=== PATIENT | female | born 1940 | race Caucasian/White ===

== ENCOUNTER → 2017-10-06 | Outpatient (CLI) | payer MEDICARE ==
[~2017-10-06] MED LIST: ACETAMINOPHEN650 M1 PO; ACTOPLUS MET 11 EAC1 PO; ALPRAZOLAM0.25 M1 PO; ATENOLOL50 MG PO; BENTYL10 MG PO; CALCIUM500 M3 PO; CLOPIDOGREL75 MG PO; DICYCLOMINE HCL20 MG PO; IBANDRONATE SO150 MG PO; METFORMIN HCL500 MG PO; PANTOPRAZOLE SO40 MG PO; TEMAZEPAM15 MG PO; VERAPAMIL HCL120 MG PO; Z MELATONIN PO; Z.0.AMBIEN10 MG PO; Z.0.ASPIRIN81 MG PO; Z.0.BYSTOLIC5 MG PO; Z.0.EFFIENT10 MG PO; Z.0.LOVASTATIN40 MG PO; Z.0.VERAPAMIL HCL40 PO; Z.1.DIOVAN HCT 3201 PO; [UNRECOGNIZED DRUG - OTHER]
--- NOTE | 2017-10-06 12:21 | Diagnostic Imaging Report ---
EXAM: Thyroid Ultrasound INDICATION: \S\THYROID NODULE COMPARISON: Thyroid ultrasound dated 09/16/2016 TECHNIQUE: Transverse and sagittal images were obtained of the thyroid gland. FINDINGS: Thyroid gland: Size: Right lobe 4.7 x 1.8 x 2.4 cm, Normal in size Left lobe 4.4 x 1.6 x 1.9 cm, Normal in size Isthmus 0.2 cm, Normal in size Appearance: Heterogeneous echotexture without increased vascularity Masses/Nodules: 2 x 1.4 x 1.8 cm right midpole cystic/solid nodule with punctate areas of increased echogenicity, representing inspissated colloid versus less likely microcalcifications. This nodule previously measured 2.5 x 1.9 x 2.3 cm 1 x 0.8 x 0.9 cm right superior pole predominantly cystic nodule, previously 0.9 x 0.6 x 0.9 cm. 0.5 x 0.2 x 0.4 cm left superior pole cystic nodule. Previously noted 0.7 cm left midpole cystic/solid nodule was not visualized. Parathyroid: No focal parathyroid masses. IMPRESSION: Although there is interval decrease in size of right midpole cystic/solid nodule, however this nodule still meets the criteria for fine-needle aspiration, if not already obtained. Additional thyroid nodules as described above. Signed by: Dr. Roni Storm MD on 10/06/2017 12:18 PM
== END ==
LOC: US 09:32
PROVIDERS: ATTEND Family Medicine
DX: E04.1 Nontoxic single thyroid nodule (principal)
CPT/HCPCS: 76536

== ENCOUNTER → 2018-01-22 | Day surgery (SDC) | payer MEDICARE ==
[2018-01-16 08:42] LABS: BASOPHILS # (AUTO) 0.1 (0.0-0.1); BASOPHILS % 1.3 % (0.0-1.0); EOSINOPHILS # (AUTO) 0.1 (0.0-0.4); EOSINOPHILS % 1.3 % (0.0-6.0); HEMATOCRIT 34.8 % (34.2-44.1); HEMOGLOBIN 12.3 g/dL (12.0-16.0); LYMPHOCYTES # (AUTO) 1.5 (1.0-3.2); LYMPHOCYTES % 26.8 % (18.0-39.1); MEAN CORPUSCULAR HEMOGLOBIN 32.8 pg (28-32); MEAN CORPUSCULAR HGB CONC 35.3 g/dL (31-35); MEAN CORPUSCULAR VOLUME 92.8 fL (81-99); MONOCYTES # (AUTO) 0.4 (0.2-0.8); MONOCYTES % 7.9 % (4.4-11.3); NEUTROPHILS # (AUTO) 3.5 (2.1-6.9); NEUTROPHILS % 62.5 % (38.7-80.0); PLATELET COUNT 196 x10e3/uL (140-360); RED BLOOD COUNT 3.75 x10e6/uL (3.6-5.1)
[~2018-01-22] MED LIST changes: +FENTANYL CITRATE/PF 100MCG/2 ML INJ ONE; +HYOSCYAMINE SULFATE 0.5 MG/ML AMP ONE; +MIDAZOLAM HCL 2 MG/2 ML VIAL ONE; +PROPOFOL IV EMULSION 10 MG/ML 50 ML VIAL ONE
--- OUTSIDE RECORDS SUMMARY | 2018-01-22 08:24 | XMS REPORT ---
Author Author [facility] Address Unknown Phone Unavailable Care Team Providers Care Healthcare Administrator Name Role Phone ALYSIA SALAS Unavailable Unavailable Problems This patient has no known problems. Allergies, Adverse Reactions, Alerts This patient has no known allergies or adverse reactions. Medications This patient has no known medications. Results Test Description Test Time Test Comments Text Results Atomic Results Result Comments US THYROID [place] [address] Patient Name: LUÍS HIDALGO MR #: [id number] : 1940 Age/Sex: 77/F Req # : [id number] Adm Physician: Ordered by: ALYSIA SALAS MD Report #: [id number] Location: US Room/Bed: Procedure: [id number] US/US THYROID Exam Date: Exam Time: REPORT STATUS: Signed EXAM: Thyroid Ultrasound INDICATION: COMPARISON : Thyroid ultrasound dated 09/16/2016 TECHNIQUE: Transverse and sagittal images were obtained of the thyroid gland. FINDINGS: Thyroid gland: Size: Right lobe 4.7 x 1.8 x 2.4 cm, Normal in size Left lobe 4.4 x 1.6 x 1.9 cm, Normal in size Isthmus 0.2 cm, Normal in size Appearance: Heterogeneous echotexture without increased vascularity Masses/Nodules: 2 x 1.4 x 1.8 cm right midpole cystic/solid nodule with punctate areas of increased echogenicity, representing inspissated colloid versus less likely microcalcifications. This nodule previously measured 2.5 x 1.9 x 2.3 cm 1 x 0.8 x 0.9 cm right superior pole predominantly cystic nodule, previously 0.9 x 0.6 x 0.9 cm. 0.5 x 0.2 x 0.4 cm left superior pole cystic nodule. Previously noted 0.7 cm left midpole cystic/solid nodule was not visualized. Parathyroid: No focal parathyroid masses. IMPRESSION: Although there is interval decrease in size of right midpole cystic/solid nodule, however this nodule still meets the criteria for fine-needle aspiration, if not already obtained. Additional thyroid nodules as described above. Signed by: Dr. Roni Storm MD on 10/06/2017 12:18 PM Dictated By: RONI STROM MD [id number] COPY TO: ALYSIA SALAS MD
--- NOTE | 2018-01-22 14:06 | Operative Report ---
DATE OF PROCEDURE: January 22, 2018 REFERRING PHYSICIAN: Darío Kunz MD PROCEDURES PERFORMED 1. Esophagogastroduodenoscopy with biopsies. 2. Colonoscopy. INDICATIONS FOR ESOPHAGOGASTRODUODENOSCOPY: Dysphagia. INDICATIONS FOR COLONOSCOPY: Colorectal cancer screening, personal history of colon polyps, lower abdominal pain. MEDICATION: Patient was done under MAC. Please see anesthesiologist's note. PROCEDURE: Patient in left lateral decubitus position. Flexible fiberoptic Olympus gastroscope was introduced into the esophagus under direct visualization without any difficulty. There was some patchy erythema noted in distal esophagus. A minute tongue of velvety red mucosa was noted to proceed proximally from the GE junction and that was biopsied to rule out Eric's. The GE junction was stenotic and that was dilated to size 52-[place] Garza. The scope was then advanced with ease into the stomach and mucosa overlying the antrum and the body revealed some patchy erythema and low-grade to moderate edema and biopsies were obtained sent to stain for H. pylori. Pylorus appeared to be of normal contour and shape, was intubated with ease and the scope was advanced all the way to the 2nd portion of the duodenum. It was then withdrawn slowly. Mucosa overlying the proximal 2nd portion and the duodenal bulb appeared to be within normal limits. The scope was then withdrawn back into the stomach and retroflexed. Mucosa overlying the fundus and the cardia appeared to be within normal limits. The scope was then straightened out and was subsequently withdrawn. Patient tolerated the procedure well. IMPRESSION 1. Rule out Eric's esophagus. 2. Esophageal stricture at gastroesophageal junction dilated to a size 52-[place] Garza. 3. Gastritis biopsied. Biopsies sent to stain for H. pylori. PLAN: Follow up histology. Initiate Protonix 40 mg 1 p.o. q am a.c. Patient was then turned around and after adequate lubrication of the anal canal, a flexible fiberoptic Olympus colonoscope was inserted into the rectum with ease and it could not be advanced beyond the mid sigmoid colon as it was sharply angulated and somewhat fixed. The scope was then withdrawn and the EGD scope was introduced into the rectum and advanced into the aforementioned site and it was negotiated with ease with the EGD scope which was advanced all the way to the cecum. The scope was then withdrawn slowly but whatever was visualized the mucosa overlying the cecum, ascending transverse and descending appeared to be within normal limits. Exam overall was suboptimal. Whatever was visualized of the sigmoid colon for diverticulosis grossly appeared to be within normal limits. The scope was then retroflexed into the distal rectum and small internal hemorrhoids were noted, none of which were actively bleeding. The scope was then straightened out and was subsequently withdrawn. Patient tolerated the procedure well. IMPRESSION 1. Diverticulosis. 2. Sharply angulated mid sigmoid colon. Could not be negotiated with a regular scope. Could only be negotiated with the EGD scope. 3. Internal hemorrhoids none actively bleeding. PLAN: Initiate high-fiber low-fat diet. Initiate a fiber supplement. Patient will need a followup colonoscopy in 3 to 5 years. Job#: [id number] DG cc:DARÍO KUNZ MD
== END | disposition home or self-care (01) ==
LOC: OR 08:22
PROVIDERS: ATTEND Internal Medicine Gastroenterology
DX: R10.30 Lower abdominal pain, unspecified (principal); K29.50 Unspecified chronic gastritis without bleeding; K22.2 Esophageal obstruction; K57.30 Diverticulosis of large intestine without perforation or abscess without bleeding; K56.609 Unspecified intestinal obstruction, unspecified as to partial versus complete obstruction; K64.8 Other hemorrhoids; I10 Essential (primary) hypertension; K21.9 Gastro-esophageal reflux disease without esophagitis; I49.9 Cardiac arrhythmia, unspecified; F41.9 Anxiety disorder, unspecified; Z01.810 Encounter for preprocedural cardiovascular examination; Z01.812 Encounter for preprocedural laboratory examination
CPT/HCPCS: 36415; 43239; 43450; 45378; 85025; 88305; 88312; 93005; J1980; J2250

== ENCOUNTER → 2020-02-20 | Outpatient (CLI) | payer MEDICARE ==
[~2020-02-20] MED LIST changes: -FENTANYL CITRATE/PF 100MCG/2 ML INJ ONE; -HYOSCYAMINE SULFATE 0.5 MG/ML AMP ONE; -MIDAZOLAM HCL 2 MG/2 ML VIAL ONE; -PROPOFOL IV EMULSION 10 MG/ML 50 ML VIAL ONE
--- NOTE | 2020-02-20 16:37 | Diagnostic Imaging Report ---
Thyroid Ultrasound Clinical Diagnosis: Thyroid nodule Comparison: 10/06/2017 Technique: Multiple images were submitted for interpretation. Multiple longitudinal and transaxial images were performed with a high frequency linear transducer. Report: Right lobe: The right lobe measures 4.5 x 1.8 x 2.1 cm. The gland is heterogeneous in echotexture. There is presence of 2 nodules. One nodule is in the middle of the thyroid lobe. It measures 2.1 x 1.6 x 2.1 cm. It is mixed cystic and solid, hyperechoic or isoechoic for its solid component, wider than tall, smooth margins, macrocalcification. It is a tirads level 3 lesion. It is considered mildly suspicious. It has become more cystic as compared to the previous exam. Follow-up at 1,3 and 5 years is recommended. There is another nodule situated more superiorly. The nodule is also mixed cystic and solid. It is isoechoic with the thyroid parenchyma. It measures 0.7 x 0.5 x 0.6 cm. It has smooth margins. There are no calcifications. It is tirads level 4. Because of the size, follow-up imaging at 1, 2, 3, and 5 years is recommended. Left lobe: The left lobe measures 4.3 x 1.7 x 2.1 cm. The lobe is heterogeneous in echotexture. There are no nodules, calcifications or masses. There are tiny scattered cysts. The isthmus measures 4 mm. Impression: Ultrasound of the thyroid with findings and recommendations as above. Signed by: Emile Ashraf MD on 02/20/2020 4:33 PM
== END ==
LOC: US 14:52
PROVIDERS: ATTEND Family Medicine
DX: E04.1 Nontoxic single thyroid nodule (principal)
CPT/HCPCS: 76536

== ENCOUNTER 2020-08-04 18:06 | Emergency (ER) | payer MEDICARE ==
[~2020-08-04] VITALS: Ht 160 cm; Wt 62.6 kg
[2020-08-04] MEDS ORDERED: CEFDINIR300 MG PO (22:06)
[2020-08-04] MEDS ORDERED: CEPHALEXIN 500 MG CAP PO STA (22:13)
[2020-08-04] MEDS ORDERED: CEPHALEXIN 500 MG CAP PO SCH (22:15)
[2020-08-04 22:19] VITALS: BP 176/86
== END 2020-08-04 22:19 | disposition home or self-care (01) ==
LOC: FSED 18:30
DX: S00.83XA Contusion of other part of head, initial encounter (principal); S60.221A Contusion of right hand, initial encounter; S80.02XA Contusion of left knee, initial encounter; W01.0XXA Fall on same level from slipping, tripping and stumbling without subsequent striking against object, initial encounter; Y93.01 Activity, walking, marching and hiking; Y92.008 Other place in unspecified non-institutional (private) residence as the place of occurrence of the external cause; I10 Essential (primary) hypertension; E78.5 Hyperlipidemia, unspecified; Z87.19 Personal history of other diseases of the digestive system
CPT/HCPCS: 70450; 70486; 72125; 99283

== ENCOUNTER 2021-06-08 21:39 | Emergency (ER) | payer MEDICARE, OTHER ==
[~2021-06-08] VITALS: Ht 160 cm; Wt 58.1 kg
[~2021-06-08 21:39] MED LIST changes: +CEFDINIR300 MG PO
[2021-06-08] MEDS ORDERED: ACETAMINOPHEN 325 MG TAB PO ONE (23:00)
[2021-06-08] MEDS ORDERED: ACETAMINOPHEN 325 MG TAB ONE (23:12)
[2021-06-08] MEDS ORDERED: BACITRACIN ZINC 0.9GM TP ONE (23:26)
[2021-06-09] MEDS ORDERED: SODIUM CHLORIDE 0.9% 500ML 500 ML IV ONE
[2021-06-09] MEDS ORDERED: SODIUM CHLORIDE 0.9% 500ML 500 ML ONE (00:01)
[2021-06-09 00:55] VITALS: BP 156/84
[2021-06-09] MEDS ORDERED: BACITRACIN-POL3.5 GM OD (00:55)
== END 2021-06-09 00:58 | disposition home or self-care (01) ==
LOC: FSED 21:45
DX: S01.411A Laceration without foreign body of right cheek and temporomandibular area, initial encounter (principal); S01.81XA Laceration without foreign body of other part of head, initial encounter; S51.811A Laceration without foreign body of right forearm, initial encounter; R55 Syncope and collapse; W01.0XXA Fall on same level from slipping, tripping and stumbling without subsequent striking against object, initial encounter; Y92.008 Other place in unspecified non-institutional (private) residence as the place of occurrence of the external cause; I10 Essential (primary) hypertension; E78.5 Hyperlipidemia, unspecified; Z87.19 Personal history of other diseases of the digestive system
CPT/HCPCS: 12013; 70450; 72125; 73110; 73130; 73610; 80053; 82553; 84484; 85025; 93005; 99284; J7040

== ENCOUNTER 2021-06-13 13:35 | Emergency (ER) | payer MEDICARE ==
[~2021-06-13] VITALS: Ht 160 cm; Wt 58.1 kg
[~2021-06-13 13:35] MED LIST changes: +BACITRACIN-POL3.5 GM OD
== END 2021-06-13 14:00 | disposition home or self-care (01) ==
LOC: FSED 13:59
DX: Z48.02 Encounter for removal of sutures (principal)
CPT/HCPCS: 99283

== ENCOUNTER → 2021-08-20 | Outpatient (CLI) | payer MEDICARE | LOC: US 13:11 | PROVIDERS: ATTEND Family Medicine | DX: E04.1 Nontoxic single thyroid nodule (principal) | CPT/HCPCS: 76536 ==

== ENCOUNTER 2022-02-17 18:14 | Inpatient (IN) | payer MEDICARE ==
[~2022-02-17] VITALS: Ht 157.5 cm; Wt 59.9 kg
[2022-02-17] MEDS ORDERED: ONDANSETRON HCL INJ 2MG/ML 2ML 2 MG/ML VIAL IV STA (18:30)
[2022-02-17] MEDS ORDERED: FAMOTIDINE 20 MG/2 ML VIAL IV ONE ×2 (18:30→19:11)
[2022-02-17] MEDS ORDERED: SODIUM CHLORIDE 0.9% 500ML 500 ML IV STA (18:39)
[2022-02-17] MEDS ORDERED: DICYCLOMINE HCL10 MG PO (18:42)
[2022-02-17] MEDS ORDERED: CYMBALTA30 MG (18:42)
[2022-02-17] MEDS ORDERED: IRBESARTAN300 MG (18:42)
[2022-02-17] MEDS ORDERED: CELEBREX200 MG PO (18:42)
[2022-02-17] MEDS ORDERED: CARVEDILOL12.5 MG PO (18:42)
[2022-02-17] MEDS ORDERED: ZETIA10 MG PO (18:42)
[2022-02-17] MEDS ORDERED: PROTONIX20 MG PO (18:42)
[2022-02-17] MEDS ORDERED: TEMAZEPAM15 MG PO (18:42)
[2022-02-17] MEDS ORDERED: CLONIDINE HCL0.1 MG PO (18:42)
[2022-02-17] MEDS ORDERED: AMLODIPINE BESYL5 MG PO (18:42)
[2022-02-17] MEDS ORDERED: PRAVASTATIN SOD40 MG (18:42)
[2022-02-17] MEDS ORDERED: ONDANSETRON HCL INJ 2MG/ML 2ML 2 MG/ML VIAL ONE (19:10)
[2022-02-17] MEDS ORDERED: SODIUM CHLORIDE 0.9% 1000ML 1,000 ML ONE (19:10)
[2022-02-17] MEDS ORDERED: ENALAPRILAT IV INJ 1.25 MG/ML VIAL IV PRN (19:45)
[2022-02-17] MEDS ORDERED: ONDANSETRON HCL INJ 2MG/ML 2ML 2 MG/ML VIAL IV PRN (19:45)
[2022-02-17] MEDS ORDERED: ZOLPIDEM TARTRATE 5 MG TAB PO PRN (19:45)
[2022-02-17] MEDS ORDERED: ACETAMINOPHEN 325 MG TAB PO PRN (19:45)
[2022-02-17] MEDS ORDERED: DIPHENHYDRAMINE HCL INJ 50 MG/ML VIAL IV PRN (19:45)
[2022-02-17] MEDS ORDERED: LACTATED RINGER'S 1,000 ML IV SCH (19:45)
[2022-02-17] MEDS ORDERED: DEXTROSE 5% 1,000 ML IV ONE (20:00)
[2022-02-17] MEDS ORDERED: HYDRALAZINE HCL 20 MG/ML VIAL IV STA (20:16)
[2022-02-17] MEDS ORDERED: HYDRALAZINE HCL 20 MG/ML VIAL ONE (20:22)
[2022-02-17] MEDS ORDERED: ACETAMINOPHEN 325 MG TAB ONE (20:57)
[2022-02-17 22:00] VITALS: BP 123/59
[2022-02-18] VITALS (8 sets, daily range): BP systolic 98–126; BP diastolic 40–62
[2022-02-18] MEDS ORDERED: ALPRAZOLAM 0.5 MG TAB PO PRN (08:45)
[2022-02-18] MEDS ORDERED: TEMAZEPAM 15 MG CAP PO PRN (08:45)
[2022-02-18 08:47] LABS: ANION GAP 12.7 mmol/L (8-16); CALCIUM 8.6 mg/dL (8.4-10.2); CREATININE, SERUM 0.71 mg/dL (0.57-1.11); MAGNESIUM 2.4 MG/DL (1.3-2.1); POTASSIUM 3.7 mmol/L (3.5-5.1)
[2022-02-18 09:00] LABS: BASOPHILS # (AUTO) 0.1 (0.0-0.1); EOSINOPHILS # (AUTO) 0.1 (0.0-0.4); HEMATOCRIT 43.4 % (34.2-44.1); HEMOGLOBIN 14.1 g/dL (12.0-16.0); LYMPHOCYTES # (AUTO) 2.4 (1.0-3.2); LYMPHOCYTES % 21.3 % (18.0-39.1); MEAN CORPUSCULAR HEMOGLOBIN 32.1 pg (28-32); MEAN CORPUSCULAR HGB CONC 32.5 g/dL (31-35); MEAN CORPUSCULAR VOLUME 98.9 fL (81-99); MONOCYTES # (AUTO) 0.8 (0.2-0.8); MONOCYTES % 7.3 % (4.4-11.3); NEUTROPHILS # (AUTO) 7.8 (2.1-6.9); PLATELET COUNT 252 x10e3/uL (140-360); RED BLOOD COUNT 4.39 x10e6/uL (3.6-5.1); RED CELL DISTRIBUTION WIDTH 12.3 % (11.7-14.4)
[2022-02-18] MEDS: CLONIDINE HCL 0.1 MG TAB PO SCH ×2 (10:02→16:37)
[2022-02-18] MEDS: EZETIMIBE 10 MG TAB PO SCH (10:04)
[2022-02-18] MEDS: PANTOPRAZOLE SOD 40 MG TABEC PO SCH (10:04)
[2022-02-18] MEDS: DULOXETINE HCL 30 MG DELAYED RELEASE PO SCH (10:05)
[2022-02-18] MEDS: MECLIZINE HCL 12.5 MG TAB PO SCH ×3 (10:05→20:55)
[2022-02-18] MEDS: DICYCLOMINE HCL 10 MG CAP PO SCH ×3 (10:05→20:55)
[2022-02-18] MEDS: CARVEDILOL 12.5 MG TAB PO SCH ×2 (10:06→17:00)
[2022-02-18] MEDS ORDERED: SODIUM CHLORIDE 0.9% 250ML 250 ML ONE (19:31)
[2022-02-19] VITALS (7 sets, daily range): BP systolic 109–138; BP diastolic 50–67
[2022-02-19] MEDS: MECLIZINE HCL 12.5 MG TAB PO SCH ×3 (05:58→20:46)
[2022-02-19] MEDS: DULOXETINE HCL 30 MG DELAYED RELEASE PO SCH (10:07)
[2022-02-19] MEDS: PANTOPRAZOLE SOD 40 MG TABEC PO SCH (10:07)
[2022-02-19] MEDS: CARVEDILOL 12.5 MG TAB PO SCH ×2 (10:07→17:00)
[2022-02-19] MEDS: DICYCLOMINE HCL 10 MG CAP PO SCH ×3 (10:07→20:46)
[2022-02-19] MEDS: EZETIMIBE 10 MG TAB PO SCH (10:07)
[2022-02-19] MEDS: CLONIDINE HCL 0.1 MG TAB PO SCH ×2 (10:08→17:00)
[2022-02-20] VITALS (8 sets, daily range): BP systolic 108–144; BP diastolic 55–65
[2022-02-20] MEDS: MECLIZINE HCL 12.5 MG TAB PO SCH ×3 (06:24→20:30)
[2022-02-20] MEDS: PANTOPRAZOLE SOD 40 MG TABEC PO SCH (09:42)
[2022-02-20] MEDS: EZETIMIBE 10 MG TAB PO SCH (09:42)
[2022-02-20] MEDS: CLONIDINE HCL 0.1 MG TAB PO SCH ×2 (09:42→17:34)
[2022-02-20] MEDS: DULOXETINE HCL 30 MG DELAYED RELEASE PO SCH (09:43)
[2022-02-20] MEDS: CARVEDILOL 12.5 MG TAB PO SCH ×2 (09:43→17:34)
[2022-02-20] MEDS: DICYCLOMINE HCL 10 MG CAP PO SCH ×3 (09:43→20:30)
[2022-02-20] MEDS ORDERED: PIPERACILLIN/TAZOBACTAM 3.375 GM VIAL ONE (10:39)
[2022-02-21] VITALS (8 sets, daily range): BP systolic 120–144; BP diastolic 52–65
[2022-02-21] MEDS: MECLIZINE HCL 12.5 MG TAB PO SCH ×3 (06:14→21:17)
[2022-02-21] MEDS ORDERED: ONDANSETRON HCL 4 MG ORAL DISINTEGRATING TAB PO PRN (08:30)
[2022-02-21] MEDS: DICYCLOMINE HCL 10 MG CAP PO SCH ×3 (08:33→21:17)
[2022-02-21] MEDS: PANTOPRAZOLE SOD 40 MG TABEC PO SCH (08:33)
[2022-02-21] MEDS: DULOXETINE HCL 30 MG DELAYED RELEASE PO SCH (08:33)
[2022-02-21] MEDS: EZETIMIBE 10 MG TAB PO SCH (08:33)
[2022-02-21] MEDS: CLONIDINE HCL 0.1 MG TAB PO SCH ×2 (08:34→17:17)
[2022-02-21] MEDS: CARVEDILOL 12.5 MG TAB PO SCH ×2 (08:34→17:17)
[2022-02-21 09:27] LABS: BASOPHILS # (AUTO) 0.1 (0.0-0.1); BASOPHILS % 1.2 % (0.0-1.0); EOSINOPHILS # (AUTO) 0.1 (0.0-0.4); EOSINOPHILS % 1.7 % (0.0-6.0); HEMOGLOBIN 12.6 g/dL (12.0-16.0); LYMPHOCYTES # (AUTO) 1.6 (1.0-3.2); LYMPHOCYTES % 19.8 % (18.0-39.1); MEAN CORPUSCULAR HEMOGLOBIN 31.9 pg (28-32); MEAN CORPUSCULAR HGB CONC 33.2 g/dL (31-35); MEAN CORPUSCULAR VOLUME 96.2 fL (81-99); MONOCYTES # (AUTO) 0.6 (0.2-0.8); MONOCYTES % 7.4 % (4.4-11.3); NEUTROPHILS # (AUTO) 5.8 (2.1-6.9); NEUTROPHILS % 69.7 % (38.7-80.0); PLATELET COUNT 207 x10e3/uL (140-360); RED BLOOD COUNT 3.95 x10e6/uL (3.6-5.1); RED CELL DISTRIBUTION WIDTH 11.7 % (11.7-14.4)
[2022-02-21 09:48] LABS: ANION GAP 11.5 mmol/L (8-16); CREATININE, SERUM 0.77 mg/dL (0.57-1.11); POTASSIUM 3.5 mmol/L (3.5-5.1)
[2022-02-21] MEDS ORDERED: GADOBENATE DIMEGLUMINE 1 ML IV ONE (11:47)
[2022-02-22] VITALS: BP 113/53
[2022-02-22 04:00] VITALS: BP 138/64
[2022-02-22] MEDS: MECLIZINE HCL 12.5 MG TAB PO SCH (05:39)
[2022-02-22 07:17] VITALS: BP 126/61
[2022-02-22 07:56] VITALS: BP 126/61
[2022-02-22] MEDS: DULOXETINE HCL 30 MG DELAYED RELEASE PO SCH (09:07)
[2022-02-22] MEDS: EZETIMIBE 10 MG TAB PO SCH (09:07)
[2022-02-22] MEDS: DICYCLOMINE HCL 10 MG CAP PO SCH (09:08)
[2022-02-22] MEDS: CARVEDILOL 12.5 MG TAB PO SCH (09:08)
[2022-02-22] MEDS: CLONIDINE HCL 0.1 MG TAB PO SCH (09:09)
[2022-02-22] MEDS: PANTOPRAZOLE SOD 40 MG TABEC PO SCH (09:09)
== END 2022-02-22 10:55 | disposition home or self-care (01) | DRG 65 ==
LOC: FSED 18:30 → ERHOLD 19:39 → MED/SURG2 21:30 → OBSVTOIN 02-18 15:27
PROVIDERS: ADMIT Internal Medicine; ATTEND Internal Medicine
DX: I63.89 Other cerebral infarction (principal); E87.0 Hyperosmolality and hypernatremia; E83.51 Hypocalcemia; I16.0 Hypertensive urgency; I10 Essential (primary) hypertension; K21.9 Gastro-esophageal reflux disease without esophagitis; I25.10 Atherosclerotic heart disease of native coronary artery without angina pectoris; H90.5 Unspecified sensorineural hearing loss; Z79.82 Long term (current) use of aspirin; Z20.822 Contact with and (suspected) exposure to COVID-19
CPT/HCPCS: 36415; 70450; 70551; 70553; 80048; 80053; 81003; 82310; 82553; 83735; 84100; 84484; 85025; 93005; 93306; 93880; 99251; 99284; G0378; J0360; J1200; J2405; J2543; J7030; J7050; J7070

== ENCOUNTER 2022-06-15 16:10 | Emergency (ER) | payer MEDICARE, OTHER ==
[~2022-06-15] VITALS: Ht 160 cm; Wt 60.8 kg
[~2022-06-15 16:10] MED LIST changes: +AMLODIPINE BESYL5 MG PO; +CARVEDILOL12.5 MG PO; +CELEBREX200 MG PO; +CLONIDINE HCL0.1 MG PO; +CYMBALTA30 MG; +DICYCLOMINE HCL10 MG PO; +IRBESARTAN300 MG; +PRAVASTATIN SOD40 MG; +PROTONIX20 MG PO; +ZETIA10 MG PO
[2022-06-16] MEDS ORDERED: BACTRIM DS TAB1 EACH PO (10:33)
[2022-06-19] MEDS ORDERED: CEFUROXIME500 MG PO (12:15)
== END 2022-06-15 21:27 | disposition home or self-care (01) ==
LOC: FSED 16:35
DX: S81.812A Laceration without foreign body, left lower leg, initial encounter (principal); S51.012A Laceration without foreign body of left elbow, initial encounter; S00.83XA Contusion of other part of head, initial encounter; W01.0XXA Fall on same level from slipping, tripping and stumbling without subsequent striking against object, initial encounter; Y93.01 Activity, walking, marching and hiking; Y92.89 Other specified places as the place of occurrence of the external cause; I10 Essential (primary) hypertension; E78.5 Hyperlipidemia, unspecified; I25.10 Atherosclerotic heart disease of native coronary artery without angina pectoris; K21.9 Gastro-esophageal reflux disease without esophagitis; F41.9 Anxiety disorder, unspecified; Z87.19 Personal history of other diseases of the digestive system
CPT/HCPCS: 70450; 70486; 72125; 80053; 81003; 82553; 84484; 85025; 87086; 87186; 93005; 99283

== ENCOUNTER 2022-06-25 10:20 | Emergency (ER) | payer MEDICARE ==
[~2022-06-25] VITALS: Ht 154.9 cm; Wt 61.0 kg
[~2022-06-25 10:20] MED LIST changes: +BACTRIM DS TAB1 EACH PO; +CEFUROXIME500 MG PO
== END 2022-06-25 11:35 | disposition home or self-care (01) ==
LOC: FSED 11:05
DX: Z48.02 Encounter for removal of sutures (principal); I10 Essential (primary) hypertension
CPT/HCPCS: 99282; S0630

== ENCOUNTER 2022-07-05 18:24 | Emergency (ER) | payer MEDICARE ==
[~2022-07-05] VITALS: Ht 154.9 cm; Wt 59.0 kg
[2022-07-05] MEDS ORDERED: LIDOCAINE 1% 5ML-MPF INJ ONE (19:15)
[2022-07-05] MEDS ORDERED: LIDOCAINE HCL 1% LOCAL INJ 20 ML VIAL ONE (19:53)
[2022-07-05 20:07] VITALS: BP 189/73
[2022-07-05] MEDS ORDERED: BACITRACIN ZINC 0.9GM TP ONE (20:12)
== END 2022-07-05 20:07 | disposition home or self-care (01) ==
LOC: FSED 18:30
DX: S81.812A Laceration without foreign body, left lower leg, initial encounter (principal); W22.8XXA Striking against or struck by other objects, initial encounter; Y92.89 Other specified places as the place of occurrence of the external cause; I10 Essential (primary) hypertension; E78.5 Hyperlipidemia, unspecified; I25.10 Atherosclerotic heart disease of native coronary artery without angina pectoris; K21.9 Gastro-esophageal reflux disease without esophagitis; F41.9 Anxiety disorder, unspecified; Z87.19 Personal history of other diseases of the digestive system
CPT/HCPCS: 12002; 99283; J2001

== ENCOUNTER 2022-07-19 09:43 | Emergency (ER) | payer MEDICARE ==
[~2022-07-19] VITALS: Ht 157.5 cm; Wt 59.0 kg
== END 2022-07-19 10:12 | disposition home or self-care (01) ==
LOC: FSED 09:56
DX: Z48.02 Encounter for removal of sutures (principal); S81.812D Laceration without foreign body, left lower leg, subsequent encounter; I10 Essential (primary) hypertension; I25.10 Atherosclerotic heart disease of native coronary artery without angina pectoris; Z79.899 Other long term (current) drug therapy
CPT/HCPCS: 99282

== ENCOUNTER 2023-01-12 13:01 | Emergency (ER) | payer OTHER, MEDICARE ==
[~2023-01-12] VITALS: Ht 157.5 cm; Wt 59.0 kg
[2023-01-12 13:03] VITALS: O2SAT 97
[2023-01-12] MEDS ORDERED: CEPHALEXIN500 MG PO (13:45)
== END 2023-01-12 14:38 | disposition home or self-care (01) ==
LOC: FSED 13:08
DX: S81.812A Laceration without foreign body, left lower leg, initial encounter (principal); X58.XXXA Exposure to other specified factors, initial encounter; Y92.89 Other specified places as the place of occurrence of the external cause; I10 Essential (primary) hypertension; I25.10 Atherosclerotic heart disease of native coronary artery without angina pectoris; E78.5 Hyperlipidemia, unspecified; K21.9 Gastro-esophageal reflux disease without esophagitis; F41.9 Anxiety disorder, unspecified
CPT/HCPCS: 99283

== ENCOUNTER → 2024-05-29 | Outpatient (REF) | payer MEDICARE ==
[~2024-05-29] MED LIST changes: +CEPHALEXIN500 MG PO
== END ==
LOC: RAD 13:47
PROVIDERS: ATTEND Internal Medicine
DX: I50.32 Chronic diastolic (congestive) heart failure (principal); I11.0 Hypertensive heart disease with heart failure
CPT/HCPCS: 93306

== ENCOUNTER 2024-10-02 14:04 | Emergency (ER) | payer MEDICARE ==
[~2024-10-02] VITALS: Ht 157.5 cm; Wt 60.3 kg
[2024-10-02 14:18] VITALS: TEMP 97
[2024-10-02] MEDS ORDERED: CEFTRIAXONE 1 GM VIAL ONE (15:07)
[2024-10-02] MEDS: SODIUM CHLORIDE 0.9% 500ML 500 ML IV STA (15:09)
[2024-10-02] MEDS: CEFTRIAXONE 1 GM VIAL IV ONE (15:09)
[2024-10-02] MEDS: FAMOTIDINE 20 MG/2 ML VIAL IV ONE (15:09)
[2024-10-02] MEDS ORDERED: CALCITRIOL0.5 MCG PO (15:22)
[2024-10-02] MEDS ORDERED: BIOTIN10000 MCG (15:22)
[2024-10-02] MEDS ORDERED: GINKGO BILOBA60 M1 PO (15:22)
[2024-10-02] MEDS ORDERED: TYLENOL325 MG PO ×2 (15:22→16:04)
[2024-10-02] MEDS ORDERED: HYLANDS LEG CRAMPS (15:22)
[2024-10-02] MEDS ORDERED: CELEBREX200 MG PO (15:22)
[2024-10-02] MEDS ORDERED: IRBESARTAN-HCT1 EAC1 (15:22)
[2024-10-02] MEDS ORDERED: SLOW-MAG64 MG PO (15:22)
[2024-10-02] MEDS ORDERED: zinc (15:22)
[2024-10-02] MEDS ORDERED: VERAPAMIL ER120 MG PO (15:22)
[2024-10-02] MEDS ORDERED: VITAMIN D362.5 MC1 (15:22)
[2024-10-02] MEDS ORDERED: COMPLETE M9 MG/15 ML (15:22)
[2024-10-02 16:16] VITALS: PULSE 56; RESP 18; O2SAT 95
[2024-10-02] MEDS ORDERED: PROBIOTIC & AC1 EACH PO (16:16)
[2024-10-02] MEDS ORDERED: CEFDINIR300 MG PO (16:16)
[2024-10-02] MEDS ORDERED: DIFLUCAN100 MG PO (16:16)
== END 2024-10-02 16:21 | disposition home or self-care (01) ==
LOC: FSED 14:10
DX: S82.61XA Displaced fracture of lateral malleolus of right fibula, initial encounter for closed fracture (principal); E86.0 Dehydration; W01.0XXA Fall on same level from slipping, tripping and stumbling without subsequent striking against object, initial encounter; Y93.01 Activity, walking, marching and hiking; Y92.89 Other specified places as the place of occurrence of the external cause; N39.0 Urinary tract infection, site not specified; I10 Essential (primary) hypertension; I25.10 Atherosclerotic heart disease of native coronary artery without angina pectoris; E78.5 Hyperlipidemia, unspecified; K21.9 Gastro-esophageal reflux disease without esophagitis; F41.9 Anxiety disorder, unspecified; M54.9 Dorsalgia, unspecified; G89.29 Other chronic pain; R94.31 Abnormal electrocardiogram [ECG] [EKG]
CPT/HCPCS: 71045; 73600; 74176; 80048; 80076; 81003; 82553; 83880; 84484; 85025; 93005; 96374; 96375; 99284; J0696; J7040

== ENCOUNTER 2024-11-01 14:08 | Emergency (ER) | payer MEDICARE ==
[~2024-11-01 14:08] MED LIST changes: +BIOTIN10000 MCG; +CALCITRIOL0.5 MCG PO; +COMPLETE M9 MG/15 ML; +DIFLUCAN100 MG PO; +GINKGO BILOBA60 M1 PO; +HYLANDS LEG CRAMPS; +IRBESARTAN-HCT1 EAC1; +PROBIOTIC & AC1 EACH PO; +SLOW-MAG64 MG PO; +TYLENOL325 MG PO; +VERAPAMIL ER120 MG PO; +VITAMIN D362.5 MC1; +zinc
[2024-11-01 14:15] VITALS: PULSE 122; RESP 16; TEMP 98.3
[2024-11-01] MEDS: SODIUM CHLORIDE 0.9% 500ML 500 ML IV STA (14:50)
[2024-11-01 15:59] VITALS: BP 113/59; PULSE 87; RESP 16; TEMP 98.3; O2SAT 95
== END 2024-11-01 16:00 | disposition home or self-care (01) ==
LOC: FSED 14:14
DX: R25.1 Tremor, unspecified (principal); R00.0 Tachycardia, unspecified; I10 Essential (primary) hypertension; I25.10 Atherosclerotic heart disease of native coronary artery without angina pectoris; E78.5 Hyperlipidemia, unspecified; M54.9 Dorsalgia, unspecified; G89.29 Other chronic pain; Z11.52 Encounter for screening for COVID-19; R94.31 Abnormal electrocardiogram [ECG] [EKG]; Z87.19 Personal history of other diseases of the digestive system
CPT/HCPCS: 0223U; 70450; 71046; 80053; 81003; 82553; 84484; 85025; 87400; 93005; 99283; J0696; J7040

== ENCOUNTER 2025-01-06 10:31 | Inpatient (IN) | payer MEDICARE ==
[~2025-01-06] VITALS: Ht 160 cm; Wt 59.0 kg
[2025-01-06] MEDS ORDERED: ATORVASTATIN CA20 MG PO (11:01)
[2025-01-06] MEDS ORDERED: CLOPIDOGREL75 MG PO (11:01)
[2025-01-06] MEDS: SODIUM CHLORIDE 0.9% 1000ML 500 ML IV ONE (11:57)
[2025-01-06] MEDS ORDERED: CEFTRIAXONE 1 GM VIAL IV ONE (13:30)
[2025-01-06] MEDS: SODIUM CHLORIDE 0.9% 1000ML 1,000 ML IV SCH (14:36)
[2025-01-06 15:25] VITALS: PULSE 74; RESP 20; TEMP 97.9
[2025-01-06 16:02] VITALS: BP 205/81; PULSE 67; RESP 18; TEMP 97; O2SAT 100
[2025-01-06 17:15] VITALS: BP 205/81; PULSE 67; RESP 18; TEMP 97; O2SAT 100
[2025-01-06 17:39] LABS: BASOPHILS # (AUTO) 0.1 (0.0-0.1); BASOPHILS % 0.8 % (0.0-1.0); EOSINOPHILS # (AUTO) 0.1 (0.0-0.4); EOSINOPHILS % 0.4 % (0.0-6.0); HEMATOCRIT 38.3 % (34.2-44.1); LYMPHOCYTES # (AUTO) 2.4 (1.0-3.2); LYMPHOCYTES % 21.3 % (18.0-39.1); MEAN CORPUSCULAR HEMOGLOBIN 32.1 pg (28-32); MEAN CORPUSCULAR HGB CONC 33.9 g/dL (31-35); MEAN CORPUSCULAR VOLUME 94.6 fL (81-99); MONOCYTES # (AUTO) 0.7 (0.2-0.8); MONOCYTES % 5.7 % (4.4-11.3); NEUTROPHILS # (AUTO) 8.2 (2.1-6.9); NEUTROPHILS % 71.5 % (38.7-80.0); PLATELET COUNT 214 x10e3/uL (140-360); RED BLOOD COUNT 4.05 x10e6/uL (3.6-5.1); RED CELL DISTRIBUTION WIDTH 12.3 % (11.7-14.4); WHITE BLOOD COUNT 11.48 x10e3/uL (4.8-10.8)
[2025-01-06 17:49] LABS: ANION GAP 14.3 mmol/L (8-16); CALCIUM 8.9 mg/dL (8.4-10.2); CREATININE, SERUM 0.77 mg/dL (0.57-1.11)
[2025-01-06 17:56] LABS: POTASSIUM 3.3 mmol/L (3.5-5.1)
[2025-01-06 18:11] LABS: MAGNESIUM 1.8 MG/DL (1.3-2.1); PHOSPHORUS 3.1 MG/DL (2.3-4.7)
[2025-01-06] MEDS ORDERED: DICYCLOMINE HCL20 MG PO (18:11)
[2025-01-06 20:00] VITALS: BP 160/98; PULSE 72; RESP 16; TEMP 97.3; O2SAT 99
[2025-01-06 20:12] VITALS: PULSE 72; RESP 18; O2SAT 99
[2025-01-06 20:33] VITALS: BP 205/81; PULSE 67; RESP 18; TEMP 97; O2SAT 100
[2025-01-06 22:36] LABS: BACTERIA,URINE FEW /HPF; BILIRUBIN,URINE NEGATIVE (NEGATIVE); CLARITY,URINE CLEAR (CLEAR); COLOR,URINE YELLOW (YELLOW); EPITHELIAL CELLS,URINE FEW /LPF; GLUCOSE, URINE NEGATIVE (NEGATIVE); KETONES,URINE NEGATIVE (NEGATIVE); LEUKOCYTE ESTERASE ,URINE TRACE (NEGATIVE); NITRITE,URINE NEGATIVE (NEGATIVE); PH,URINE 7 (5 - 7); PROTEIN,URINE DIPSTICK NEGATIVE (NEGATIVE); RBC,URINE 0-5 /HPF (0-5); URINE UROBILINOGEN 0.2 mg/dL (0.2 - 1); WBC,URINE (MAN) 0-5 /HPF (0-5)
[2025-01-07] VITALS (9 sets, daily range): BP systolic 98–178; BP diastolic 82–107; PULSE 74–96; RESP 18; TEMP 97.4–98.2; O2SAT 95–99
[2025-01-07] MEDS: METOPROLOL TARTRATE INJ 1 MG/ML VIAL IV PRN (00:18)
[2025-01-07 07:15] LABS: HEMATOCRIT 41.5 % (34.2-44.1); HEMOGLOBIN 13.5 g/dL (12.0-16.0); MEAN CORPUSCULAR HEMOGLOBIN 31.3 pg (28-32); MEAN CORPUSCULAR HGB CONC 32.5 g/dL (31-35); MEAN CORPUSCULAR VOLUME 96.3 fL (81-99); PLATELET COUNT 241 x10e3/uL (140-360); RED BLOOD COUNT 4.31 x10e6/uL (3.6-5.1); RED CELL DISTRIBUTION WIDTH 12.2 % (11.7-14.4); WHITE BLOOD COUNT 10.61 x10e3/uL (4.8-10.8)
[2025-01-07 07:44] LABS: ANION GAP 13.2 mmol/L (8-16); CALCIUM 9.2 mg/dL (8.4-10.2); CREATININE, SERUM 0.74 mg/dL (0.57-1.11)
[2025-01-07 07:48] LABS: POTASSIUM 3.2 mmol/L (3.5-5.1)
[2025-01-07] MEDS ORDERED: ALBUTEROL/IPRATROPIUM 3 ML NEB NEB PRN (09:45)
[2025-01-07] MEDS ORDERED: DOCUSATE SODIUM 100 MG CAP PO PRN (09:45)
[2025-01-07] MEDS ORDERED: METOPROLOL TARTRATE INJ 1 MG/ML VIAL IV PRN (09:45)
[2025-01-07] MEDS ORDERED: ONDANSETRON HCL INJ 2MG/ML 2ML 2 MG/ML VIAL IV PRN (09:45)
[2025-01-07 10:14] LABS: EOSINOPHILS % (MANUAL) 1 % (0-7); LYMPHOCYTES % (MANUAL) 21 % (19-48); MONOCYTES % (MANUAL) 3 % (3.4-9.0); NEUTROPHILS % (MANUAL) 74 % (40-74); REACTIVE LYMPHOCYTES 1
[2025-01-07 10:15] LABS: PLATELET ESTIMATE ADEQUATE; PLATELET MORPHOLOGY COMMENT NORMAL; RBC MORPHOLOGY COMMENT NORMAL
[2025-01-07] MEDS: DICYCLOMINE HCL 20 MG TAB PO SCH (11:11)
[2025-01-07] MEDS: EZETIMIBE 10 MG TAB PO SCH (11:11)
[2025-01-07] MEDS: CLOPIDOGREL BISULFATE 75 MG TAB PO SCH (11:11)
[2025-01-07] MEDS: PANTOPRAZOLE SOD 40 MG TABEC PO SCH (11:11)
[2025-01-07] MEDS: DULOXETINE HCL 30 MG DELAYED RELEASE PO SCH (11:11)
[2025-01-07] MEDS: ATORVASTATIN 40 MG TAB PO SCH (21:00)
[2025-01-07] MEDS: ACETAMINOPHEN 325 MG TAB PO PRN (21:00)
[2025-01-08] VITALS (12 sets, daily range): BP systolic 136–166; BP diastolic 68–95; PULSE 64–86; RESP 18; TEMP 97.2–98.2; O2SAT 95–99
[2025-01-08] MEDS: METOPROLOL TARTRATE 25 MG TAB PO SCH (17:29)
[2025-01-09] VITALS (12 sets, daily range): BP systolic 130–189; BP diastolic 90–99; PULSE 60–92; RESP 13–18; TEMP 97.6–99.1; O2SAT 93–100
[2025-01-09 07:02] LABS: BASOPHILS # (AUTO) 0.1 (0.0-0.1); BASOPHILS % 0.8 % (0.0-1.0); EOSINOPHILS # (AUTO) 0.3 (0.0-0.4); EOSINOPHILS % 2.2 % (0.0-6.0); HEMATOCRIT 37.1 % (34.2-44.1); HEMOGLOBIN 12.7 g/dL (12.0-16.0); LYMPHOCYTES # (AUTO) 2.1 (1.0-3.2); LYMPHOCYTES % 17.5 % (18.0-39.1); MEAN CORPUSCULAR HEMOGLOBIN 31.8 pg (28-32); MEAN CORPUSCULAR HGB CONC 34.2 g/dL (31-35); MONOCYTES % 8.4 % (4.4-11.3); NEUTROPHILS # (AUTO) 8.3 (2.1-6.9); NEUTROPHILS % 70.7 % (38.7-80.0); PLATELET COUNT 201 x10e3/uL (140-360); RED BLOOD COUNT 3.99 x10e6/uL (3.6-5.1); RED CELL DISTRIBUTION WIDTH 11.8 % (11.7-14.4)
[2025-01-09 07:37] LABS: CREATININE, SERUM 0.71 mg/dL (0.57-1.11)
[2025-01-09] MEDS: METOPROLOL TARTRATE 25 MG TAB PO ONE (12:44)
[2025-01-09] MEDS: POTASSIUM CHLORIDE 10MEQ EA PO ONE (12:45)
[2025-01-09] MEDS: AMLODIPINE BESYLATE 5 MG TAB PO SCH (17:00)
[2025-01-09] MEDS: METOPROLOL TARTRATE 50 MG TAB PO SCH (17:06)
[2025-01-09] MEDS: MELATONIN 3 MG TAB PO PRN (21:54)
[2025-01-10] VITALS (12 sets, daily range): BP systolic 119–179; BP diastolic 68–112; PULSE 63–109; RESP 16–18; TEMP 96.6–98; O2SAT 95–98
[2025-01-10 07:07] LABS: BASOPHILS # (AUTO) 0.1 (0.0-0.1); BASOPHILS % 0.4 % (0.0-1.0); EOSINOPHILS # (AUTO) 0.1 (0.0-0.4); EOSINOPHILS % 0.5 % (0.0-6.0); HEMATOCRIT 41.2 % (34.2-44.1); LYMPHOCYTES # (AUTO) 1.4 (1.0-3.2); LYMPHOCYTES % 8.1 % (18.0-39.1); MEAN CORPUSCULAR HEMOGLOBIN 31.7 pg (28-32); MEAN CORPUSCULAR VOLUME 93.4 fL (81-99); MONOCYTES # (AUTO) 1.6 (0.2-0.8); MONOCYTES % 9.8 % (4.4-11.3); NEUTROPHILS # (AUTO) 13.4 (2.1-6.9); NEUTROPHILS % 80.7 % (38.7-80.0); PLATELET COUNT 241 x10e3/uL (140-360); RED BLOOD COUNT 4.41 x10e6/uL (3.6-5.1); RED CELL DISTRIBUTION WIDTH 11.8 % (11.7-14.4); WHITE BLOOD COUNT 16.65 x10e3/uL (4.8-10.8)
[2025-01-10 07:34] LABS: ANION GAP 30.1 mmol/L (8-16); CALCIUM 9.4 mg/dL (8.4-10.2); CREATININE, SERUM 0.74 mg/dL (0.57-1.11)
[2025-01-10 07:35] LABS: POTASSIUM 3.1 mmol/L (3.5-5.1)
[2025-01-10] MEDS: NIFEDIPINE CR 30 MG TAB PO SCH (15:09)
[2025-01-11] VITALS (9 sets, daily range): BP systolic 103–150; BP diastolic 63–86; PULSE 71–85; RESP 18–22; TEMP 97.3–98.4; O2SAT 94–98
[2025-01-11] MEDS: TRAZODONE HCL 50 MG TAB PO SCH (22:11)
[2025-01-12] VITALS (9 sets, daily range): BP systolic 108–136; BP diastolic 56–74; PULSE 74–89; RESP 16–22; TEMP 96–99.7; O2SAT 94–97
[2025-01-12] MEDS: RIVASTIGMINE PATCH 4.6MG/24 HOURS PATCH TD SCH (08:46)
[2025-01-12 14:05] LABS: BASOPHILS # (AUTO) 0.1 (0.0-0.1); BASOPHILS % 0.6 % (0.0-1.0); EOSINOPHILS # (AUTO) 0.1 (0.0-0.4); EOSINOPHILS % 0.5 % (0.0-6.0); HEMATOCRIT 35.2 % (34.2-44.1); LYMPHOCYTES # (AUTO) 1.8 (1.0-3.2); LYMPHOCYTES % 14.9 % (18.0-39.1); MEAN CORPUSCULAR HEMOGLOBIN 31.3 pg (28-32); MEAN CORPUSCULAR HGB CONC 34.1 g/dL (31-35); MEAN CORPUSCULAR VOLUME 91.9 fL (81-99); MONOCYTES # (AUTO) 1.3 (0.2-0.8); MONOCYTES % 10.6 % (4.4-11.3); NEUTROPHILS # (AUTO) 8.9 (2.1-6.9); NEUTROPHILS % 73.1 % (38.7-80.0); PLATELET COUNT 239 x10e3/uL (140-360); RED BLOOD COUNT 3.83 x10e6/uL (3.6-5.1); RED CELL DISTRIBUTION WIDTH 11.8 % (11.7-14.4); WHITE BLOOD COUNT 12.13 x10e3/uL (4.8-10.8)
[2025-01-12] MEDS: SODIUM CHLORIDE 0.9% 1000ML 1,000 ML IV SCH (17:53)
[2025-01-12 18:53] LABS: BILIRUBIN,URINE NEGATIVE (NEGATIVE); CLARITY,URINE CLEAR (CLEAR); COLOR,URINE YELLOW (YELLOW); GLUCOSE, URINE NEGATIVE (NEGATIVE); KETONES,URINE NEGATIVE (NEGATIVE); LEUKOCYTE ESTERASE ,URINE NEGATIVE (NEGATIVE); NITRITE,URINE NEGATIVE (NEGATIVE); PH,URINE 6 (5 - 7); URINE UROBILINOGEN 0.2 mg/dL (0.2 - 1)
[2025-01-12 18:54] LABS: PROTEIN,URINE DIPSTICK 1+ (NEGATIVE)
[2025-01-12 19:06] LABS: RBC,URINE 0-5 /HPF (0-5); WBC,URINE (MAN) 0-5 /HPF (0-5)
[2025-01-12] MEDS: Vancomycin IV 1 GM in SODIUM CHLORIDE 0.9% 250ML 250 ML IV ONE (22:01)
[2025-01-13] VITALS (11 sets, daily range): BP systolic 107–152; BP diastolic 49–96; PULSE 72–97; RESP 18–20; TEMP 97.2–99.7; O2SAT 94–100
[2025-01-13 06:28] LABS: BASOPHILS # (AUTO) 0.1 (0.0-0.1); BASOPHILS % 0.5 % (0.0-1.0); EOSINOPHILS # (AUTO) 0.1 (0.0-0.4); EOSINOPHILS % 0.6 % (0.0-6.0); HEMATOCRIT 32.5 % (34.2-44.1); HEMOGLOBIN 11.2 g/dL (12.0-16.0); LYMPHOCYTES # (AUTO) 1.3 (1.0-3.2); LYMPHOCYTES % 12.3 % (18.0-39.1); MEAN CORPUSCULAR HEMOGLOBIN 31.7 pg (28-32); MEAN CORPUSCULAR HGB CONC 34.5 g/dL (31-35); MEAN CORPUSCULAR VOLUME 92.1 fL (81-99); MONOCYTES # (AUTO) 1.2 (0.2-0.8); NEUTROPHILS # (AUTO) 8.2 (2.1-6.9); NEUTROPHILS % 75.3 % (38.7-80.0); PLATELET COUNT 222 x10e3/uL (140-360); RED BLOOD COUNT 3.53 x10e6/uL (3.6-5.1); RED CELL DISTRIBUTION WIDTH 11.6 % (11.7-14.4); WHITE BLOOD COUNT 10.82 x10e3/uL (4.8-10.8)
[2025-01-13 06:47] LABS: ALBUMIN 2.8 g/dL (3.5-5.0); ANION GAP 12.3 mmol/L (8-16); BILIRUBIN,TOTAL 0.9 mg/dL (0.2-1.2); CALCIUM 8.8 mg/dL (8.4-10.2); CREATININE, SERUM 0.68 mg/dL (0.57-1.11); TOTAL PROTEIN 5.7 g/dL (6.5-8.1)
[2025-01-13 06:51] LABS: POTASSIUM 3.3 mmol/L (3.5-5.1)
[2025-01-14 04:00] VITALS: BP 107/88; PULSE 73; RESP 20; TEMP 97.6; O2SAT 98
[2025-01-14 08:02] VITALS: PULSE 75; RESP 18; O2SAT 95
[2025-01-14 08:38] VITALS: BP 130/53; PULSE 76; RESP 19; TEMP 97; O2SAT 96
[2025-01-14 12:29] VITALS: BP 132/64; PULSE 78; RESP 19; TEMP 97.9; O2SAT 100
[2025-01-14] MEDS ORDERED: ONDANSETRON HCL 4 MG ORAL DISINTEGRATING TAB PO PRN (14:15)
[2025-01-14 15:21] VITALS: BP 93/59; PULSE 54; RESP 18; TEMP 97.7; O2SAT 97
== END 2025-01-14 16:02 | DRG 871 ==
LOC: FSED 10:37 → ERHOLD 13:37 → MED/SURG3 15:49 → OBSVTOIN 01-07 09:41
PROVIDERS: ADMIT Internal Medicine; ATTEND Internal Medicine
DX: A41.9 Sepsis, unspecified organism (principal); G93.41 Metabolic encephalopathy; N39.0 Urinary tract infection, site not specified; F05 Delirium due to known physiological condition; E87.21 Acute metabolic acidosis; I67.4 Hypertensive encephalopathy; I16.1 Hypertensive emergency; J98.11 Atelectasis; R65.20 Severe sepsis without septic shock; E86.0 Dehydration; I11.9 Hypertensive heart disease without heart failure; F03.C0 Unspecified dementia, severe, without behavioral disturbance, psychotic disturbance, mood disturbance, and anxiety; E78.5 Hyperlipidemia, unspecified; I25.10 Atherosclerotic heart disease of native coronary artery without angina pectoris; I69.393 Ataxia following cerebral infarction; I65.23 Occlusion and stenosis of bilateral carotid arteries; K21.9 Gastro-esophageal reflux disease without esophagitis; H91.92 Unspecified hearing loss, left ear; K57.90 Diverticulosis of intestine, part unspecified, without perforation or abscess without bleeding; M54.9 Dorsalgia, unspecified; G89.29 Other chronic pain; E04.2 Nontoxic multinodular goiter; F41.8 Other specified anxiety disorders; Z71.3 Dietary counseling and surveillance; Z68.23 Body mass index [BMI] 23.0-23.9, adult; Z11.52 Encounter for screening for COVID-19; Z71.81 Spiritual or religious counseling; Z79.02 Long term (current) use of antithrombotics/antiplatelets; Z79.899 Other long term (current) drug therapy
CPT/HCPCS: 0223U; 36415; 70551; 71045; 71250; 80048; 80053; 80076; 81001; 81003; 82140; 82550; 82607; 82948; 83518; 83605; 83735; 84100; 84443; 84484; 85007; 85025; 85027; 87040; 87086; 87400; 93005; 93971; 94799; 95819; 99252; 99284; G0378; J0696; J2470; J3411; J7030; J7050